=== PATIENT | female | born 1965 | race Caucasian/White ===

== ENCOUNTER 2024-12-07 17:02 | Emergency (ER) | payer MEDICAID ==
[~2024-12-07] VITALS: Ht 165.1 cm; Wt 64.0 kg
[2024-12-07 17:06] VITALS: O2SAT 100
[2024-12-07 18:10] LABS: BASOPHILS % 0.6 % (0.0-2.0); EOSINOPHILS % 0.7 % (0.0-5.0); HEMATOCRIT. 40.4 % (36.0-48.0); HEMOGLOBIN. 13.6 g/dL (12.0-16.0); LYMPHOCYTES % 26.3 % (20.0-50.0); MEAN PLATELET VOLUME 9.0 fl (7.4-10.4); MONOCYTES % 7.5 % (2.0-8.0); NEUTROPHILS % 64.9 % (40.0-76.0); PLATELET 255 x1000/uL (130-400); RED BLOOD CELL COUNT 4.65 mill/uL (4.2-5.4); RED CELL DISTRIBUTION WIDTH 12.9 % (11.6-14.6)
[2024-12-07 18:18] LABS: INR 1.1
[2024-12-07 18:21] LABS: CREATININE 0.9 mg/dL (0.6-1.0)
[2024-12-07 18:22] LABS: UREA NITROGEN BLOOD 10 mg/dL (9-23)
[2024-12-07 18:23] LABS: TROPONIN I HIGH SENSITIVITY < 4 ng/L (3.0-34)
[2024-12-07 18:24] LABS: ASPARTATE AMINOTRANSFERASE 25 IU/L (<34); BILIRUBIN DIRECT 0.1 mg/dL (<=3.0); BILIRUBIN TOTAL 0.5 mg/dL (0.1-1.0); PROTEIN TOTAL 8.0 g/dL (6.0-8.3)
[2024-12-07 20:34] LABS: TROPONIN I HIGH SENSITIVITY < 4 ng/L (3.0-34)
[2024-12-07 20:41] VITALS: BP 120/78; PULSE 73; RESP 14; TEMP 36.7; O2SAT 100
== END 2024-12-07 20:48 | disposition home or self-care (01) ==
LOC: ER 17:02
DX: R07.89 Other chest pain (principal); I10 Essential (primary) hypertension; Z79.899 Other long term (current) drug therapy
CPT/HCPCS: 36415; 71045; 80048; 80076; 84484; 85025; 93005; 99285